=== PATIENT | female | born 1980 | race Caucasian/White ===

== ENCOUNTER 2022-06-09 10:37 | Outpatient (CLI) | payer SELFPAY ==
[~2022-06-09] VITALS: Ht 178 cm; Wt 70.8 kg
[~2022-06-09 10:37] MED LIST: HYDR-3583 PO; IBP600T1 PO
[2022-06-09] MEDS ORDERED: ONDANSETRON 4 MG/2 ML (SDV) Z0FRAN IVP PRN (11:00)
[2022-06-09] MEDS ORDERED: LACTATED RINGERS 1,000 ML IV SCH ×2 (11:00→14:15)
[2022-06-09 11:01] VITALS: BP 129/65
[2022-06-09 11:16] LABS: BASOPHILS % (AUTO) 0 % (0-10); EOSINOPHILS % (AUTO) 0 % (0-10); HEMATOCRIT 34 % (35-52); HEMOGLOBIN 11.3 g/dL (11.5-16.0); LYMPHOCYTES % (AUTO) 10 % (12-44); MEAN CORPUSCULAR HEMOGLOBIN 30 pg (25-34); MEAN CORPUSCULAR HGB CONC 33 g/dL (32-36); MEAN CORPUSCULAR VOLUME 89 fL (80-99); MEAN PLATELET VOLUME 9.4 fL (9.0-12.2); MONOCYTES # (AUTO) 0.8 10^3/uL (0.0-1.0); MONOCYTES % (AUTO) 9 % (0-12); NEUTROPHILS # (AUTO) 7.4 10^3/uL (1.8-7.8); NEUTROPHILS % (AUTO) 79 % (42-75); PLATELET COUNT 199 10^3/uL (130-400); WHITE BLOOD COUNT 9.4 10^3/uL (4.3-11.0)
[2022-06-09 11:17] LABS: BILIRUBIN,URINE NEGATIVE (NEGATIVE); CLARITY,URINE SL CLOUDY; COLOR,URINE YELLOW; GLUCOSE, URINE (UA) NEGATIVE (NEGATIVE); KETONES,URINE NEGATIVE (NEGATIVE); LEUKOCYTE ESTERASE ,URINE 1+ (NEGATIVE); NITRITE,URINE NEGATIVE (NEGATIVE); PROTEIN,URINE 1+ (NEGATIVE)
[2022-06-09 11:35] LABS: BACTERIA,URINE MODERATE /HPF; RBC,URINE 50-100 /HPF
[2022-06-09 11:42] LABS: ALBUMIN 3.1 GM/DL (3.2-4.5); BILIRUBIN,TOTAL 0.5 MG/DL (0.1-1.0); CALCIUM 8.8 MG/DL (8.5-10.1); CREATININE SERUM 0.85 MG/DL (0.60-1.30); POTASSIUM 3.1 MMOL/L (3.6-5.0); TOTAL PROTEIN 6.3 GM/DL (6.4-8.2)
[2022-06-09] MEDS ORDERED: fentaNYL INJ 100 MCG/2 ML AMP IVP PRN (12:15)
[2022-06-09 12:28] LABS: AMYLASE 101 U/L (25-125); LIPASE 26 U/L (8-78)
[2022-06-09 13:22] VITALS: BP 117/65
[2022-06-09] MEDS ORDERED: cefTRIAXone 1,000 MG in SYRINGE-IVPB 0 SYRINGE IV SCH (14:15)
[2022-06-09] MEDS ORDERED: HYDROcodone/APAP 5 MG/325 MG (LORTAB) TAB PO PRN (14:15)
--- NOTE | 2022-06-09 14:17 | History & Physical-OB ---
OB - Chief Complaint & HPI Date/Time Date of Admission: Date of Admission: 06/09/2022 Date seen by a Provider: Jun 09, 2022 Time Seen by a Provider: 13:50 Chief Complaint/History OB-Reason for Admission/Chief: Medical Complication Hx : 3 Hx Para: 2 Expected Date of Delivery: July 30, 2022 Gestational Age in Weeks: 32 Gestational Age in Days: 5 Other at 32w5d came to Labor and Delivery due to sudden onset of severe right sided pain at 7 am. This woke her up out of sleep and was sharp and stabbing, f rom rib level down to pelvis and through back, worst in right back just below ribs. She denies fever, dysuria. Has had normal to increased movement. Denies vaginal bleeding. Last bowel movement was yesterday afternoon and was normal. Vomited once this morning which she relates to pain. Republic her heart was pounding when pain was severe. She has no history of kidney stones, she does still have her gall bladder. She has had chronic epigastric pain which she relates to reflux and this has not changed. Allergies and Home Medications Allergies Coded Allergies: No Known Drug Allergies (Unverified , 06/09/22) Patient Home Medication List Home Medication List Reviewed: Yes Calcium Carbonate (Tums) 200 Mg Calcium (500 Mg) Tab.chew, 200 MG PO TID PRN for HEARTBURN, (Reported) Entered as Reported by: ZECHARIAH BRIGGS on 06/09/221420 Last Action: New Order Pnv95/Ferrous Fumarate/FA ( Vitamin Tablet) 28 Mg Iron-800 Mcg Tablet, 1 EACH PO DAILY, (Reported) Entered as Reported by: ZECHARIAH BRIGGS on 06/09/221420 Last Action: New Order OB - History Hx of Present Care: Yes Ultrasounds: Normal mid trimester US (had low lying placenta at 22 weeks, repeat US at 26 weeks with no previa) Obstetrical Complications: Other (abnormal 1 hour glucola, 1/4 elevated on 3 hour) Information Induced Hypertension: No Maternal Gestational Diabetes: No Hemorrhage: No Obstetrical History Hx : 3 Hx Para: 2 Hx # Term Pregnancies: 2 Hx # Pregnancies: 0 Number of Living Children: 2 Hx Total # of Abortions (Spona: 0 Hx Multiple Gestation: No Hx Ectopic : No Hx Stillbirth: No Hx Complication: Yes Hx Induced Hypertens: No Hx Maternal Gestational Diabet: Yes Hx Hemorrhage: No Delivery History Hx Dystocia: No Hx Forceps Assisted Delivery: No Hx Vacuum Extraction Assisted: No Hx Placenta Abnormality: Yes (partial abruption with first delivery) Hx Distress: No Hx Large For Gestational Age I: No Hx Small for Gestational Age I: No Hx Section: No Hx Vaginal Delivery Post C-Sec: No Hx Blood Disorders: No Adverse Rxn to Tranfusion: No Patient Past Medical History PMHx: Denies Surg Hx: LEEP Social History/Family History Alcohol Use: Denies Use Recreational Drug Use: No Smoking Cessation: Current every day smoker 2nd Hand Smoke Exposure: Yes Immunizations Influenza Vaccine Up-to-Date: No; Not Current Rubella: immune RPR/VDRL: Negative GBS Status: Unknown HBsAG: Negative OB - Admission Exam Physical Exam Vitals: Vital Signs 06/09/22 06/09/22 11:01 13:22 Temp 36.2 Pulse 63 Resp 18 B/P (MAP) 117/65 (82) Pulse Ox 99 O2 Delivery Room Air HEENT: NCAT Lungs: Clear Abdomen: Gravid (mild diffuse ttp, greatest in RUQ, positive Delgado's by report, but unclear if pain worse except by asking; moderate to severe right flank pain with palpation) Extremities: Normal Heart Rate: 140's Accelerations: Accelerations Present Decelerations: No Decelerations Short Term Variability: Present Veneer Jointer Returner Variability: Average (6-25) Contractions on Admission: None Labs Laboratory Tests Test 06/09/22 10:30 06/09/22 11:08 Range/Units Urine Color YELLOW Urine Clarity SL CLOUDY Urine pH 7.0 5-9 Urine Specific Sullivan 1.020 1.016-1.022 Urine Protein 1+ H NEGATIVE Urine Glucose (UA) NEGATIVE NEGATIVE Urine Ketones NEGATIVE NEGATIVE Urine Nitrite NEGATIVE NEGATIVE Urine Bilirubin NEGATIVE NEGATIVE Urine Urobilinogen 0.2 < = 1.0 MG/DL Urine Leukocyte Esterase 1+ H NEGATIVE Urine RBC (Auto) 3+ H NEGATIVE Urine RBC 50-100 H /HPF Urine WBC 2-5 /HPF Urine Squamous Epithelial Cells 5-10 /HPF Urine Crystals NONE /LPF Urine Bacteria MODERATE H /HPF Urine Casts NONE /LPF Urine Mucus SMALL H /LPF Urine Culture Indicated CULTURE PENDING White Blood Count 9.4 4.3-11.0 10^3/uL Red Blood Count 3.83 3.80-5.11 10^6/uL Hemoglobin 11.3 L 11.5-16.0 g/dL Hematocrit 34 L 35-52 % Mean Corpuscular Volume 89 80-99 fL Mean Corpuscular Hemoglobin 30 25-34 pg Mean Corpuscular Hemoglobin Concent 33 32-36 g/dL Red Cell Distribution Width 12.8 10.0-14.5 % Platelet Count 199 130-400 10^3/uL Mean Platelet Volume 9.4 9.0-12.2 fL Immature Granulocyte % (Auto) 2 % Neutrophils (%) (Auto) 79 H 42-75 % Lymphocytes (%) (Auto) 10 L 12-44 % Monocytes (%) (Auto) 9 0-12 % Eosinophils (%) (Auto) 0 0-10 % Basophils (%) (Auto) 0 0-10 % Neutrophils # (Auto) 7.4 1.8-7.8 10^3/uL Lymphocytes # (Auto) 1.0 1.0-4.0 10^3/uL Monocytes # (Auto) 0.8 0.0-1.0 10^3/uL Eosinophils # (Auto) 0.0 0.0-0.3 10^3/uL Basophils # (Auto) 0.0 0.0-0.1 10^3/uL Immature Granulocyte # (Auto) 0.2 H 0.0-0.1 10^3/uL Sodium Level 138 135-145 MMOL/L Potassium Level 3.1 L 3.6-5.0 MMOL/L Chloride Level 105 98-107 MMOL/L Carbon Dioxide Level 20 L 21-32 MMOL/L Anion Gap 13 5-14 MMOL/L Blood Urea Nitrogen 10 7-18 MG/DL Creatinine 0.85 0.60-1.30 MG/DL Estimat Glomerular Filtration Rate 89 BUN/Creatinine Ratio 12 Glucose Level 95 70-105 MG/DL Calcium Level 8.8 8.5-10.1 MG/DL Corrected Calcium 9.5 8.5-10.1 MG/DL Total Bilirubin 0.5 0.1-1.0 MG/DL Aspartate Amino Transf (AST/SGOT) 19 5-34 U/L Alanine Aminotransferase (ALT/SGPT) 16 0-55 U/L Alkaline Phosphatase 163 H 40-136 U/L Total Protein 6.3 L 6.4-8.2 GM/DL Albumin 3.1 L 3.2-4.5 GM/DL Amylase Level 101 25-125 U/L Lipase 26 8-78 U/L OB - Assessment/Plan/Diagnosis Assessment Admission Dx Right sided pain in Third trimester 32 weeks gestation Admission Status: Observation Plan Other Plan Severe right sided pain in - differential including HELLP, acute fatty liver, gall bladder disease, nephrolithiasis, intraabdominal infection, pyelonephritis, ovarian torsion, placental abruption -Initial labs- CBC, CMP, lipase/amylase all reassuring making HELLP, AFLP and infection unlikely - status reassuring making abruption less likely -UA with possible infection- will treat with ceftriaxone pending culture -Check STAT US to eval placenta, ovaries, liver and kidneys -IV bolus and now continuous LR for suspected nephrolithiasis, pain control with hydrocodone if tolerating oral, fentanyl IV if needed ZECHARIAH BRIGGS MD Jun 09, 2022 14:17
[2022-06-09] MEDS ORDERED: D5 LR IV SOLUTION 1,000 ML IV SCH (14:18)
[2022-06-09] MEDS ORDERED: PNV91TAB6 PO (14:21)
[2022-06-09] MEDS ORDERED: CALC500T7 PO (14:21)
[2022-06-09] MEDS: fentaNYL INJ 100 MCG/2 ML AMP IVP PRN ×3 (14:25→15:57)
[2022-06-09] MEDS ORDERED: cefTRIAXone 1 GM/50 ML (PRE-MIX) IV SCH (14:30)
[2022-06-09] MEDS ORDERED: FAMOTIDINE 20 MG (PEPCID) TABLET PO SCH (14:45)
[2022-06-09] MEDS ORDERED: KCL 20 MEQ TAB (K-DUR) PO NR (15:00)
[2022-06-09 15:50] VITALS: BP 139/63
--- NOTE | 2022-06-09 15:58 | Diagnostic Imaging Report ---
PROCEDURE: US Hepatic (Liver). TECHNIQUE: Multiple real-time grayscale images were obtained over the right upper quadrant in various projections. INDICATION: Right upper quadrant pain. FINDINGS: Liver measures 16 cm in length. Portal vein is patent and shows normal direction of flow. No liver mass is identified. There is a large amount of shadowing arising from the gallbladder. Features are suggestive of a stone filled gallbladder. No biliary ductal dilatation is seen. The pancreas and aorta are obscured. IVC is patent. Right kidney does show moderate hydronephrosis. There is a questionable cyst in the lower pole of the right kidney as well. No calculi are seen. There is no ascites. IMPRESSION: 1. Features suggestive of a stone filled gallbladder. 2. Moderate right-sided hydronephrosis. Dictated by: Dictated on workstation # [id number]
--- NOTE | 2022-06-09 15:59 | Diagnostic Imaging Report ---
INDICATION: Right upper quadrant pain and placental abruption. FINDINGS: There is a single live fetus in a cephalic presentation. heart rate was recorded at 142 bpm. Placenta is posterior. No previa is identified. No retroplacental fluid collection or evidence of abruption is identified. Amniotic fluid index is 17.4 cm. IMPRESSION: Unremarkable limited obstetrical ultrasound. Dictated by: Dictated on workstation # [id number]
--- NOTE | 2022-06-09 16:00 | Diagnostic Imaging Report ---
PROCEDURE: US renal bilateral. TECHNIQUE: Multiple real-time grayscale images were obtained over the kidneys in various projections, bilaterally. INDICATION: Right upper quadrant pain. FINDINGS: Right kidney measures 12.5 x 6.4 x 6.1 cm and left kidney measures 11.2 x 5.4 x 4.9 cm. There is fairly significant hydronephrosis in the right kidney. There is also questionable cyst in the lower pole right kidney. No calculus is seen. Left kidney is unremarkable. There is normal cortical thickness. IMPRESSION: Moderate right-sided hydronephrosis. Dictated by: Dictated on workstation # [id number]
[2022-06-09] MEDS ORDERED: ACHD5005 PO (17:45)
[2022-06-09] MEDS ORDERED: FAMO20TA5 PO (17:45)
[2022-06-09] MEDS ORDERED: AMOX1TAB12 PO (17:45)
[2022-06-09 18:20] VITALS: BP 139/63
[2022-06-10] MEDS ORDERED: CALC500T7 PO (10:58)
[2022-06-10] MEDS ORDERED: FAMO20TA3 PO (10:58)
[2022-06-10] MEDS ORDERED: PREN-142 PO (10:58)
--- NOTE | 2022-06-10 17:48 | Discharge Summary ---
Discharge Summary Hospital Course Hospital Course Date of Admission: Admission Diagnosis : 32 weeks gestation/third trimester Right sided pain complicating Family Physician/Provider: Date of Discharge: 06/10/22 Discharge Diagnosis: 32 weeks gestation Cholelithiasis Right sided hydronephrosis Hospital Course: 41 yo at 32w5d presented with severe right sided abdominal pain. CBC and CMP and lipase/amylase were normal, status reassuring and no contractions noted. Her uterus was soft and no-tender. STAT US showed no evidence of abruption, normal status and JABARI. She had multiple gall stones, normal appearing liver and moderate right sided hydronephrosis noted on ultrasound. She did have hematuria noted. She was given IVF and pain medication, and when she was able to tolerate oral hydrocodone, and pain was controlled, she requested d/c due to spouses' work and her kids. Throughout her stay, heart rate was reassuring with moderate varability and accelerations and she had no regular uterine activity. She was discharged with scripts for hydrocodone for pain suspected to be related to biliary colic vs nephrolithiasis and Augmentin (given one dose of ceftriaxone inpatient) for possible UTI. Labs and Pending Lab Test: Microbiology 06/09/22 Urine Culture - Final, Complete Mixed Bacterial Shila See Comments Home Meds Active Amox Tr-K Clv 875-125 mg Tab (Amoxicillin/Potassium Clav) 875 Mg-125 Mg Tablet 1 Each PO BID Hydrocodone-Acetamin 5-325 mg (Hydrocodone/Acetaminophen) 5 Mg-325 Mg Tablet 1 Tab PO Q4H PRN Famotidine 20 Mg Tablet 20 Mg PO BID Reported Vitamin Tablet (Pnv95/Ferrous Fumarate/FA) 28 Mg Iron-800 Mcg Tablet 1 Each PO DAILY Tums (Calcium Carbonate) 200 Mg Calcium (500 Mg) Tab.chew 200 Mg PO TID PRN Assessment/Pt DC Instructions Follow up next week. Discharge Diet: Liquid Diet Activity as Tolerated: Yes Discharge Physical Examination Allergies: Coded Allergies: No Known Drug Allergies (Unverified , 06/09/22) ZECHARIAH BRIGGS MD Jun 10, 2022 17:47
== END 2022-06-09 17:55 | disposition home or self-care (01) ==
LOC: WSo 10:37 → LDRP 10:37 → MERGE 10:37 → SUATTDRO 14:40 → WSo 17:55
PROVIDERS: ATTEND Family Medicine
DX: O99.891 Other specified diseases and conditions complicating pregnancy (principal); R10.9 Unspecified abdominal pain; Z3A.00 Weeks of gestation of pregnancy not specified
CPT/HCPCS: 36415; 76705; 76770; 76815; 80053; 81000; 82150; 83690; 85025; 87088

== ENCOUNTER 2022-06-10 07:46 | Observation (INO) | payer SELFPAY ==
[~2022-06-10] VITALS: Ht 178 cm; Wt 70.9 kg
[~2022-06-10 07:46] MED LIST changes: +ACHD5005 PO; +AMOX1TAB12 PO; +CALC500T7 PO; +FAMO20TA5 PO; +PNV91TAB6 PO
[2022-06-10] MEDS ORDERED: LACTATED RINGERS 1,000 ML IV SCH (08:15)
[2022-06-10 08:22] VITALS: BP 119/68
[2022-06-10 08:26] LABS: BASOPHILS % (AUTO) 0 % (0-10); EOSINOPHILS # (AUTO) 0.1 10^3/uL (0.0-0.3); EOSINOPHILS % (AUTO) 0 % (0-10); HEMATOCRIT 30 % (35-52); HEMOGLOBIN 10.2 g/dL (11.5-16.0); LYMPHOCYTES # (AUTO) 1.1 10^3/uL (1.0-4.0); LYMPHOCYTES % (AUTO) 8 % (12-44); MEAN CORPUSCULAR HEMOGLOBIN 30 pg (25-34); MEAN CORPUSCULAR HGB CONC 34 g/dL (32-36); MEAN CORPUSCULAR VOLUME 88 fL (80-99); MEAN PLATELET VOLUME 9.5 fL (9.0-12.2); MONOCYTES % (AUTO) 8 % (0-12); NEUTROPHILS # (AUTO) 10.3 10^3/uL (1.8-7.8); NEUTROPHILS % (AUTO) 82 % (42-75); PLATELET COUNT 183 10^3/uL (130-400); WHITE BLOOD COUNT 12.6 10^3/uL (4.3-11.0)
[2022-06-10 08:33] LABS: POTASSIUM 3.4 MMOL/L (3.6-5.0)
[2022-06-10 08:34] LABS: CALCIUM 8.1 MG/DL (8.5-10.1)
[2022-06-10 08:37] LABS: BILIRUBIN,TOTAL 0.5 MG/DL (0.1-1.0)
[2022-06-10] MEDS: fentaNYL INJ 100 MCG/2 ML AMP IVP PRN ×6 (08:38→19:21)
[2022-06-10 08:39] LABS: CREATININE SERUM 0.76 MG/DL (0.60-1.30)
[2022-06-10] MEDS ORDERED: cefTRIAXone 1 GM PRE-MIX 50 ML IV ONE (09:00)
[2022-06-10 09:59] VITALS: BP 118/82
--- NOTE | 2022-06-10 10:27 | History & Physical-OB ---
OB - Chief Complaint & HPI Date/Time Date of Admission: Date of Admission: 06/10/22 Date seen by a Provider: Jun 10, 2022 Time Seen by a Provider: 10:15 Chief Complaint/History OB-Reason for Admission/Chief: Medical Complication Hx : 3 Hx Para: 2 Expected Date of Delivery: July 30, 2022 Gestational Age in Weeks: 32 Gestational Age in Days: 6 History of Labs Laboratory Tests Test 06/10/22 08:18 Range/Units White Blood Count 12.6 H 4.3-11.0 10^3/uL Red Blood Count 3.43 L 3.80-5.11 10^6/uL Hemoglobin 10.2 L 11.5-16.0 g/dL Hematocrit 30 L 35-52 % Mean Corpuscular Volume 88 80-99 fL Mean Corpuscular Hemoglobin 30 25-34 pg Mean Corpuscular Hemoglobin Concent 34 32-36 g/dL Red Cell Distribution Width 13.0 10.0-14.5 % Platelet Count 183 130-400 10^3/uL Mean Platelet Volume 9.5 9.0-12.2 fL Immature Granulocyte % (Auto) 1 % Neutrophils (%) (Auto) 82 H 42-75 % Lymphocytes (%) (Auto) 8 L 12-44 % Monocytes (%) (Auto) 8 0-12 % Eosinophils (%) (Auto) 0 0-10 % Basophils (%) (Auto) 0 0-10 % Neutrophils # (Auto) 10.3 H 1.8-7.8 10^3/uL Lymphocytes # (Auto) 1.1 1.0-4.0 10^3/uL Monocytes # (Auto) 1.0 0.0-1.0 10^3/uL Eosinophils # (Auto) 0.1 0.0-0.3 10^3/uL Basophils # (Auto) 0.0 0.0-0.1 10^3/uL Immature Granulocyte # (Auto) 0.1 0.0-0.1 10^3/uL Sodium Level 135 135-145 MMOL/L Potassium Level 3.4 L 3.6-5.0 MMOL/L Chloride Level 105 98-107 MMOL/L Carbon Dioxide Level 19 L 21-32 MMOL/L Anion Gap 11 5-14 MMOL/L Blood Urea Nitrogen 9 7-18 MG/DL Creatinine 0.76 0.60-1.30 MG/DL Estimat Glomerular Filtration Rate 102 BUN/Creatinine Ratio 12 Glucose Level 93 70-105 MG/DL Calcium Level 8.1 L 8.5-10.1 MG/DL Corrected Calcium 8.9 8.5-10.1 MG/DL Total Bilirubin 0.5 0.1-1.0 MG/DL Aspartate Amino Transf (AST/SGOT) 17 5-34 U/L Alanine Aminotransferase (ALT/SGPT) 16 0-55 U/L Alkaline Phosphatase 161 H 40-136 U/L Total Protein 6.0 L 6.4-8.2 GM/DL Albumin 3.0 L 3.2-4.5 GM/DL Lipase 26 8-78 U/L Other at 32w6d was in yesterday with severe right sided pain and had work-up consistent with gall stones, pain was tolerable with oral hydrocodone and she requested discharge. She was sent with hydrocodone and Augmentin for possible UTI. After going home, she took hydrocodone at 8 pm, woke up around midnight with some pain but went back to sleep until 6 am, at which time pain was intolerable and she wasn't able to manage it with the hydrocodone, is more severe than yesterday. Denies fever, chills, vaginal bleeding or decreased movement. She doesn't think she is having contractions, but is hard to tell for sure given her persistent back pain. Pain is in right upper quadrant and right upper back at worst, but does radiate down to right side down to pelvis and along back, and she does have pain through epigastric region now as well. Vo mited this morning 3 times. Has not had a bowel movement since Saturday afternoon (around 36 hours ago). Ultrasounds from 06/09/22 showed no evidence of abruption, unremarkable Ob ultrasound with normal JABARI, renal US with moderate right sided hydroneprhosis and Liver/GB US "IMPRESSION: 1. Features suggestive of a stone filled gallbladder. 2. Moderate right-sided hydronephrosis." Labs on 06/09 had normal white blood cell count, hgb in the 11s, nml platelets and nml LFTs (alk phos mildly elevated consistent with levels), nml lipase/amylase. Allergies and Home Medications Allergies Coded Allergies: No Known Drug Allergies (Unverified , 06/27/11) Patient Home Medication List Home Medication List Reviewed: Yes Calcium Carbonate (Tums) 200 Mg Calcium (500 Mg) Tab.chew, 200 MG PO, (Reported) Entered as Reported by: ZECHARIAH BRIGGS on 06/10/221057 Last Action: Reviewed Famotidine (Acid Support Worker (FAMOTIDINE)) 20 Mg Tablet, 20 MG PO BID, (Reported) Entered as Reported by: ZECHARIAH BRIGGS on 06/10/221057 Last Action: Reviewed Hydrocodone Bit/Acetaminophen (Lortab 5 Mg) 1 Tab Tab, 1 EA PO Q 4 - 6 HR PRN PRN, (Reported) Entered as Reported by: ENRIQUE BELLA on 06/29/11 144 Last Action: Reviewed Vit No.124/Iron/FA ( Vitamin Tablet) 27 Mg Iron-800 Mcg Tablet, 1 EACH PO DAILY, (Reported) Entered as Reported by: ZECHARIAH BRIGGS on 06/10/221057 Last Action: Reviewed Discontinued Medications Ibuprofen (Motrin) 600 Mg Tab, 600 MG PO Q6H, (Reported) Entered as Reported by: ENRIQUE BELLA on 06/29/111443 Last Action: Discontinued OB - History Hx of Present Care: Yes Ultrasounds: Normal mid trimester US Information Induced Hypertension: No Maternal Gestational Diabetes: No Hemorrhage: No Obstetrical History Hx : 3 Hx Para: 2 Hx # Term Pregnancies: 2 Hx # Pregnancies: 0 Number of Living Children: 2 Hx Termination: No Hx Total # of Abortions (Spona: 0 Hx Multiple Gestation: No Hx Ectopic : No Hx Stillbirth: No Hx Complication: Yes (partial placental abruption with first delivery) Hx Induced Hypertens: No Hx Maternal Gestational Diabet: No Hx Hemorrhage: No Delivery History Hx Dystocia: No Hx Forceps Assisted Delivery: No Hx Vacuum Extraction Assisted: No Hx Placenta Abnormality: Yes (partial placental abruption with first at labor) Hx Distress: No Hx Large For Gestational Age I: No Hx Small for Gestational Age I: No Hx Section: No Hx Vaginal Delivery Post C-Sec: No Hx Blood Disorders: No Adverse Rxn to Tranfusion: No Patient Past Medical History PMHx: Denies SurgHx: LEEP of cervix Social History/Family History Alcohol Use: Denies Use Recreational Drug Use: No Smoking Cessation: Current every day smoker 2nd Hand Smoke Exposure: Yes Immunizations Influenza Vaccine Up-to-Date: No; Not Current Rubella: immune RPR/VDRL: Negative GBS Status: Unknown HBsAG: Negative OB - Admission Exam Physical Exam Vitals: Vital Signs 06/10/22 06/10/22 08:22 09:59 Temp 36.5 Pulse 78 Resp 20 B/P (MAP) 118/82 (94) Pulse Ox 96 O2 Delivery Room Air HEENT: NCAT Abdomen: Gravid (uterus nontender and soft, marked ttp RUQ, mild ttp LUQ) Extremities: Normal Cervical Dilatation: Fingertip Heart Rate: 120's Accelerations: Accelerations Present Decelerations: No Decelerations Short Term Variability: Present Nursing Home Variability: Average (6-25) Contractions on Admission: None Labs Laboratory Tests Test 06/10/22 08:18 Range/Units White Blood Count 12.6 H 4.3-11.0 10^3/uL Red Blood Count 3.43 L 3.80-5.11 10^6/uL Hemoglobin 10.2 L 11.5-16.0 g/dL Hematocrit 30 L 35-52 % Mean Corpuscular Volume 88 80-99 fL Mean Corpuscular Hemoglobin 30 25-34 pg Mean Corpuscular Hemoglobin Concent 34 32-36 g/dL Red Cell Distribution Width 13.0 10.0-14.5 % Platelet Count 183 130-400 10^3/uL Mean Platelet Volume 9.5 9.0-12.2 fL Immature Granulocyte % (Auto) 1 % Neutrophils (%) (Auto) 82 H 42-75 % Lymphocytes (%) (Auto) 8 L 12-44 % Monocytes (%) (Auto) 8 0-12 % Eosinophils (%) (Auto) 0 0-10 % Basophils (%) (Auto) 0 0-10 % Neutrophils # (Auto) 10.3 H 1.8-7.8 10^3/uL Lymphocytes # (Auto) 1.1 1.0-4.0 10^3/uL Monocytes # (Auto) 1.0 0.0-1.0 10^3/uL Eosinophils # (Auto) 0.1 0.0-0.3 10^3/uL Basophils # (Auto) 0.0 0.0-0.1 10^3/uL Immature Granulocyte # (Auto) 0.1 0.0-0.1 10^3/uL Sodium Level 135 135-145 MMOL/L Potassium Level 3.4 L 3.6-5.0 MMOL/L Chloride Level 105 98-107 MMOL/L Carbon Dioxide Level 19 L 21-32 MMOL/L Anion Gap 11 5-14 MMOL/L Blood Urea Nitrogen 9 7-18 MG/DL Creatinine 0.76 0.60-1.30 MG/DL Estimat Glomerular Filtration Rate 102 BUN/Creatinine Ratio 12 Glucose Level 93 70-105 MG/DL Calcium Level 8.1 L 8.5-10.1 MG/DL Corrected Calcium 8.9 8.5-10.1 MG/DL Total Bilirubin 0.5 0.1-1.0 MG/DL Aspartate Amino Transf (AST/SGOT) 17 5-34 U/L Alanine Aminotransferase (ALT/SGPT) 16 0-55 U/L Alkaline Phosphatase 161 H 40-136 U/L Total Protein 6.0 L 6.4-8.2 GM/DL Albumin 3.0 L 3.2-4.5 GM/DL Lipase 26 8-78 U/L OB - Assessment/Plan/Diagnosis Assessment Admission Dx intrauterine at 32 weeks gestation Suspected cholelithiasis complicating Possible nephrolithiasis complicating Admission Status: Observation Plan Other Plan Suspected cholecystitis: at this time, given persistence of pain and increasing WBC, suspect acute cholecystitis rather than biliary colic alone. Did receive one dose of ceftriaxone yesterday, restart today and add metronidazole. Consult Surgery. Pain not controlled with fentanyl, will try morphine. Uterine irritability: monitor closely for labor signs due to above. status reassuring. Possible UTI: urine yesterday with signs of possible infection, treated with ceftriaxone. Possible nephrolithiasis: right sided hydronephrosis without visualized stone, could be related. IVF at 150 mls/hr. Pain control as above. 32 weeks gestation: continuous monitor, safe medications ZECHARIAH BRIGGS MD Jun 10, 2022 10:27
[2022-06-10] MEDS ORDERED: morphine INJ 10 MG/ML 1ML (SYR OR VIAL) IVP PRN (10:45)
[2022-06-10] MEDS ORDERED: morphine INJ 4 MG/ML 1 ML (VIAL/SYRINGE) ONE (10:56)
[2022-06-10] MEDS ORDERED: PREN-142 PO (10:58)
[2022-06-10] MEDS ORDERED: CALC500T7 PO (10:58)
[2022-06-10] MEDS ORDERED: FAMO20TA3 PO (10:58)
[2022-06-10] MEDS ORDERED: ONDANSETRON 4 MG/2 ML (SDV) Z0FRAN IVP PRN (11:15)
[2022-06-10] MEDS: metroNIDAZOLE 500MG/100ML IVPB 100 ML IV SCH ×2 (11:19→19:22)
[2022-06-10] MEDS: morphine INJ 4 MG/ML 1 ML (VIAL/SYRINGE) IV PRN ×2 (11:19→11:35)
[2022-06-10] MEDS ORDERED: morphine INJ 10 MG/ML 1ML (SYR OR VIAL) IVP STA (11:23)
[2022-06-10 11:35] VITALS: BP 130/66
[2022-06-10] MEDS ORDERED: fentaNYL INJ 100 MCG/2 ML AMP ONE ×2 (12:56→14:06)
--- NOTE | 2022-06-10 12:56 | Diagnostic Imaging Report ---
ABDOMEN/KUB 1VIEW INDICATION: Vomiting COMPARISON: None available. TECHNIQUE: AP view the abdomen FINDINGS: Gravid uterus with skeleton noted. The fetus is in cephalic presentation. spine is to maternal left. Nonobstructive bowel gas pattern. No radiographically apparent urinary tract calculi. IMPRESSION: 1. Nonobstructive bowel gas pattern. 2. Gravid uterus with fetus in cephalic presentation. Dictated by: Dictated on workstation # [id number]
[2022-06-10] MEDS ORDERED: fentaNYL INJ 100 MCG/2 ML AMP IVP PRN (14:15)
[2022-06-10] MEDS ORDERED: NICOTINE 14 MG (NICODERM) PATCH TD NR (16:00)
--- NOTE | 2022-06-10 16:03 | Consultation - Surgery ---
DINESHDONNIE 06/10/22 1603: History of Present Illness History of Present Illness Patient Consulted On(codi/time) 06/10/22 15:55 Date Seen by Provider: Jun 10, 2022 Time Seen by Provider: 15:55 History of Present Illness 41yo F at 32 weeks admitted for RUQ abd and possible acute cholecystitis. Pt states that she experienced sudden onset of 10/10 sharp, constant, RUQ pain with radiation to R upper back Saturday morning. Pt also experienced associated nausea, vomiting (multiple episodes of bile and water), and chills.. Pt states that she took 2 tylenol tabs but had no relief, prompting her to go to [facility]. US remarkbale for cholelithiasis and moderate hydronephrosis of the R kidney. Pt was given hydrocodone and sent home. Pt states that pain was initially controlled with hydrocodone when taken Q4H, but missed 4am dose and woke up at 6am this morning with "intolerable pain" that was worse than before. Pt also notes increased nausea and vomiting, stating that emesis was now dark green and "sludgy". Pt was admitted to labor and delivery, carlos but not in active labor. In room, pt is in moderate distress secondary to pain. Pt states that pain is somewhat relieved by pain medication but is still an 8/10 and worse with movement. Pt also notes that movement of her right leg causes exacerbation of RUQ pain and states that she cannot lift her leg without assistance. Tender to palpation of RUQ and R upper back, slightly worse on back. Pt is unable to tolerate liquids at this time, having emesis after every sip of water. Pt was found to have RBCs on UA and reports kiki blood with wiping as well as increased urgency that started yesterday. WBC increased from yesterday at 12.6 from 9.7, but still within normal range for a third trimester . LFTs normal (elevated ALP within range for ). Bilirubin normal. Pt afebrile. Pt denies every experiencing similar pain in the past and states that abd pain not similar to labor pains. Does not feel like pains are contractions. Pt denies fevers at home, CP, SOB, diarrhea, SOB, and dysuria. Liver US: IMPRESSION: 1. Features suggestive of a stone filled gallbladder. 2. Moderate right-sided hydronephrosis. Renal US: IMPRESSION: Moderate right-sided hydronephrosis. Allergies and Home Medications Allergies Coded Allergies: No Known Drug Allergies (Unverified , 06/27/11) Patient Home Medication List Home Medication List Reviewed: Yes Calcium Carbonate (Tums) 200 Mg Calcium (500 Mg) Tab.chew, 200 MG PO, (Reported) Entered as Reported by: ZECHARIAH BRIGGS on 06/10/221057 Last Action: Reviewed Famotidine (Acid Medication Nurse (FAMOTIDINE)) 20 Mg Tablet, 20 MG PO BID, (Reported) Entered as Reported by: ZECHARIAH BRIGGS on 06/10/221057 Last Action: Reviewed Hydrocodone Bit/Acetaminophen (Lortab 5 Mg) 1 Tab Tab, 1 EA PO Q 4 - 6 HR PRN PRN, (Reported) Entered as Reported by: ENRIQUE BELLA on 06/29/111443 Last Action: Reviewed Vit No.124/Iron/FA ( Vitamin Tablet) 27 Mg Iron-800 Mcg Tablet, 1 EACH PO DAILY, (Reported) Entered as Reported by: ZECHARIAH BRIGGS on 06/10/221057 Last Action: Reviewed Discontinued Medications Ibuprofen (Motrin) 600 Mg Tab, 600 MG PO Q6H, (Reported) Entered as Reported by: ENRIQUE BELLA on 06/29/111443 Last Action: Discontinued Past Dxmossj-Andzaw-Itqqcp Hx Patient Social History Smoking Status: Current Everyday Smoker Type Used: Cigarettes 2nd Hand Smoke Exposure: Yes Alcohol Use?: No Immunizations Up To Date Date of Influenza Vaccine: Dec 21, 2010 Surgeries History of Surgeries: No Respiratory History of Respiratory Disorde: No Cardiovascular History of Cardiac Disorders: No Neurological History of Neurological Disord: No Reproductive System : Yes Hx : 3 Hx Para: 2 Hx Total # of Abortions (Spona: 0 Hx Reproductive Disorders: No Female Reproductive Disorders: Denies (h/o placental abruption in first ) Gastrointestinal History of Gastrointestinal Di: No Musculoskeletal History of Musculoskeletal Dis: No Endocrine History of Endocrine Disorders: Yes (Gestational diabetes in second , not in current ) HEENT History of HEENT Disorders: No Cancer History of Cancer: No Psychosocial History of Psychiatric Problem: No Integumentary History of Skin or Integumenta: No Blood Transfusions Adverse Reaction to a Blood Tr: No Family Medical History Significant Family History: Heart Disease (mother, grandmother), COPD (mother and father) Review of Systems-General Constitutional: chills; No fever EENTM: No blurred vision, No double vision Respiratory: No cough, No dyspnea on exertion Cardiovascular: No chest pain, No palpitations Gastrointestinal: abdominal pain (RUQ pain with radiation to right upper back), nausea, vomiting Genitourinary: No dysuria; hematuria Musculoskeletal: back pain (radiation from abd pain, Right upper back) Skin: No change in color, No change in hair/nails Psychiatric/Neurological: Denies Anxiety, Denies Depressed All Other Systems Reviewed Negative Unless Noted: Yes (Negative excepted noted.) Physical Exam-General Problems Physical Exam Vital Signs Vital Signs - First Documented 06/10/22 08:22 Temp 36.5 Pulse 75 Resp 20 B/P (MAP) 119/68 Pulse Ox 96 O2 Delivery Room Air Capillary Refill : Less Than 3 Seconds General Appearance: moderate distress (secondary to pain, writhing in bed), other (gravid abd) HEENT: PERRL/EOMI Neck: non-tender, supple Respiratory: lungs clear, normal breath sounds, no respiratory distress Cardiovascular: no gallop, no murmur, tachycardia Peripheral Pulses: 2+ Dorsalis Pedis (R), 2+ Left Dors-Pedis (L) Gastrointestinal: tenderness (RUQ), other (gravid abd) Back: other (Right upper back tenderness ) Extremities: no pedal edema, no calf tenderness Neurologic/Psychiatric: alert, normal mood/affect, oriented x 3 Skin: normal color, warm/dry Lymphatic: no adenopathy Data Review Labs Laboratory Tests 06/10/22 08:18: White Blood Count 12.6H, Red Blood Count 3.43L, Hemoglobin 10.2L, Hematocrit 30L , Mean Corpuscular Volume 88, Mean Corpuscular Hemoglobin 30, Mean Corpuscular Hemoglobin Concent 34, Red Cell Distribution Width 13.0, Platelet Count 183, Mean Platelet Volume 9.5, Immature Granulocyte % (Auto) 1, Neutrophils (%) (Auto) 82H, Lymphocytes (%) (Auto) 8L, Monocytes (%) (Auto) 8, Eosinophils (%) (Auto) 0, Basophils (%) (Auto) 0, Neutrophils # (Auto) 10.3H, Lymphocytes # (Auto) 1.1, Monocytes # (Auto) 1.0, Eosinophils # (Auto) 0.1, Basophils # (Auto) 0.0, Immature Granulocyte # (Auto) 0.1, Sodium Level 135, Potassium Level 3.4L, Chloride Level 105, Carbon Dioxide Level 19L, Anion Gap 11, Blood Urea Nitrogen 9, Creatinine 0.76, Estimat Glomerular Filtration Rate 102, BUN/Creatinine Ratio 12, Glucose Level 93, Calcium Level 8.1L, Corrected Calcium 8.9, Total Bilirubin 0.5, Aspartate Amino Transf (AST/SGOT) 17, Alanine Aminotransferase (ALT/SGPT) 16, Alkaline Phosphatase 161H, Total Protein 6.0L, Albumin 3.0L, Lipase 26 Radiology Date of Exam:06/09/22 US RENAL BILATERAL [id number] PROCEDURE: US renal bilateral. TECHNIQUE: Multiple real-time grayscale images were obtained over the kidneys in various projections, bilaterally. INDICATION: Right upper quadrant pain. FINDINGS: Right kidney measures 12.5 x 6.4 x 6.1 cm and left kidney measures 11.2 x 5.4 x 4.9 cm. There is fairly significant hydronephrosis in the right kidney. There is also questionable cyst in the lower pole right kidney. No calculus is seen. Left kidney is unremarkable. There is normal cortical thickness. IMPRESSION: Moderate right-sided hydronephrosis. Dictated by: Dictated on workstation # [id number] Dict: 06/09/22 1556 Trans: 06/09/22 1601 [facility] [id number] Interpreted by: SORAIDA GALVEZ MD Electronically signed by: SORAIDA GALVEZ MD 06/09/22 1601 Date of Exam:06/09/22 US HEPATIC (LIVER)[id number] PROCEDURE: US Hepatic (Liver). TECHNIQUE: Multiple real-time grayscale images were obtained over the right upper quadrant in various projections. INDICATION: Right upper quadrant pain. FINDINGS: Liver measures 16 cm in length. Portal vein is patent and shows normal direction of flow. No liver mass is identified. There is a large amount of shadowing arising from the gallbladder. Features are suggestive of a stone filled gallbladder. No biliary ductal dilatation is seen. The pancreas and aorta are obscured. IVC is patent. Right kidney does show moderate hydronephrosis. There is a questionable cyst in the lower pole of the right kidney as well. No calculi are seen. There is no ascites. IMPRESSION: 1. Features suggestive of a stone filled gallbladder. 2. Moderate right-sided hydronephrosis. Dictated by: Dictated on workstation # [id number] Dict: 06/09/22 1553 Trans: 06/09/22 1601 [facility] [id number] Interpreted by: SORAIDA GALVEZ MD Electronically signed by: SORAIDA GALVEZ MD 06/09/22 1601 Date of Exam:06/09/22 US LIMITED [id number] INDICATION: Right upper quadrant pain and placental abruption. FINDINGS: There is a single live fetus in a cephalic presentation. heart rate was recorded at 142 bpm. Placenta is posterior. No previa is identified. No retroplacental fluid collection or evidence of abruption is identified. Amniotic fluid index is 17.4 cm. IMPRESSION: Unremarkable limited obstetrical ultrasound. Dictated by: Dictated on workstation # [id number] Dict: 06/09/22 1555 Trans: 06/09/22 1601 [facility] [id number] Interpreted by: SORAIDA GALVEZ MD Electronically signed by: SORAIDA GALVEZ MD 06/09/22 1601 Date of Exam:06/10/22 ABDOMEN/KUB 1VIEW ABDOMEN/KUB 1VIEW INDICATION: Vomiting COMPARISON: None available. TECHNIQUE: AP view the abdomen FINDINGS: Gravid uterus with skeleton noted. The fetus is in cephalic presentation. spine is to maternal left. Nonobstructive bowel gas pattern. No radiographically apparent urinary tract calculi. IMPRESSION: 1. Nonobstructive bowel gas pattern. 2. Gravid uterus with fetus in cephalic presentation. Dictated by: Dictated on workstation # [id number] Dict: 06/10/22 1253 Trans: 06/10/22 1408 [facility] [id number] Interpreted by: EMI ESPINOZA MD Electronically signed by: EMI ESPINOZA MD 06/10/22 1408 Assessment/Plan Assessment/Plan Assessment/Plan Cholelithiasis Moderate R hydronephrosis RUQ abd pain w/rad to R upper back Nausea and vomiting Hematuria 32 weeks IVF pain control anti-emetics prn IV Flagyl Pt in moderate distress secondary to pain on exam, probably multifactorial but symptoms concerning for both nephrolithiasis and cholecystitis, will repeat abd US tomorrow Clear liquids, NPO after midnight DWIGHT LEVI DO 06/10/222038: History of Present Illness History of Present Illness History of Present Illness 34 year old female 32 weeks , began having pain in right upper quadrant and back that was sharp stabbing pain that was constant. Never had pain like this before. Movement makes worse. She was evaluated yesterday labs essentially normal and u/s was done demonstrating gallbladder full of gallstones no other features of choleycystitis, hydronephrosis right side. Wanted to go home last night so she was discharged. She returned with continued pain. Worse pain is in the back on right side. She is having nausea and emesis. She reports blood in her urine. Her wbc increased. She is having some contractions. Allergies and Home Medications Allergies Coded Allergies: No Known Drug Allergies (Unverified , 06/27/11) Patient Home Medication List Home Medication List Reviewed: Yes Calcium Carbonate (Tums) 200 Mg Calcium (500 Mg) Tab.chew, 200 MG PO, (Reported) Entered as Reported by: ZECHARIAH BRIGGS on 06/10/22 105 Last Action: Reviewed Famotidine (Acid Medication Nurse (FAMOTIDINE)) 20 Mg Tablet, 20 MG PO BID, (Reported) Entered as Reported by: ZECHARIAH BRIGGS on 06/10/221057 Last Action: Reviewed Hydrocodone Bit/Acetaminophen (Lortab 5 Mg) 1 Tab Tab, 1 EA PO Q 4 - 6 HR PRN PRN, (Reported) Entered as Reported by: ENRIQUE BELLA on 06/29/11 144 Last Action: Reviewed Vit No.124/Iron/FA ( Vitamin Tablet) 27 Mg Iron-800 Mcg Tablet, 1 EACH PO DAILY, (Reported) Entered as Reported by: ZECHARIAH BRIGGS on 06/10/22 105 Last Action: Reviewed Discontinued Medications Ibuprofen (Motrin) 600 Mg Tab, 600 MG PO Q6H, (Reported) Entered as Reported by: ENRIQUE BELLA on 06/29/111443 Last Action: Discontinued Past Pqikxvm-Ibgxts-Ljssqj Hx Patient Social History Smoking Status: Current Everyday Smoker Alcohol Use?: No Surgeries History of Surgeries: No Respiratory History of Respiratory Disorde: No Cardiovascular History of Cardiac Disorders: No Neurological History of Neurological Disord: No Gastrointestinal History of Gastrointestinal Di: No Musculoskeletal History of Musculoskeletal Dis: No Endocrine History of Endocrine Disorders: No (Gestational diabetes in second , not in current ) HEENT History of HEENT Disorders: No Cancer History of Cancer: No Psychosocial History of Psychiatric Problem: No Integumentary History of Skin or Integumenta: No Reviewed Nursing Assessment Reviewed/Agree w Nursing PMH: Yes Family Medical History Significant Family History: Heart Disease (mother, grandmother), COPD (mother and father) Review of Systems-General Constitutional: chills; No fever EENTM: No blurred vision, No double vision Respiratory: No cough, No dyspnea on exertion Cardiovascular: No chest pain, No palpitations Gastrointestinal: No abdominal pain (RUQ); nausea, vomiting Genitourinary: No dysuria; hematuria Musculoskeletal: back pain ( Right mid back) Skin: No change in color, No change in hair/nails Psychiatric/Neurological: Denies Anxiety, Denies Depressed All Other Systems Reviewed Negative Unless Noted: Yes (Negative excepted noted.) Physical Exam-General Problems Physical Exam General Appearance: moderate distress (secondary to pain, writhing in bed), other (gravid abd, can't get comfortable, moving around) HEENT: PERRL/EOMI, normal ENT inspection Neck: non-tender, supple Respiratory: chest non-tender, normal breath sounds, no respiratory distress Cardiovascular: no JVD, tachycardia Gastrointestinal: soft, tenderness (Right side of abdomen), other (gravid abd) Rectal: deferred Back: other (Right mid back tenderness ) Extremities: no pedal edema, no calf tenderness Neurologic/Psychiatric: alert, normal mood/affect, oriented x 3 Skin: normal color, warm/dry Lymphatic: no adenopathy Assessment/Plan Assessment/Plan Assessment/Plan Cholelithiasis Moderate R hydronephrosis RUQ abd pain Righ mid back pain Nausea and vomiting Hematuria 32 weeks IVF pain control anti-emetics prn antibiotics Pt in moderate distress secondary to pain on exam, probably multifactorial but symptoms concerning for possible both uteral stone (causing hematuria and hyd ronephrosis) and cholecystitis had gallstones but no other features of cholecystitis by u/s. Discussed with Dr. Galvez., will repeat abd US tomorrow to see if any change by u/s clarifying diagnosis. Clear liquids, NPO after midnight Also Discussed with Dr. Briggs- Patient having more contractions, She is going to contact center with NICU for possible transfer. Supervisory-Addendum Brief Verification & Attestation Participated in pt care: history, MDM, physical Personally performed: exam, history, MDM, supervision of care Care discussed with: Medical Student Procedures: n/a Results interpretation: Verified all documentation Verification and Attestation of Medical Student E/M Service A medical student performed and documented this service in my presence. I reviewed and verified all information documented by the medical student and made modifications to such information, when appropriate. I personally performed the physical exam and medical decision making. Dwight Levi, Jun 10, 2022,20:49 DONNIE MONTIEL Jun 10, 2022 16:03 DWIGHT LEVI DO Jun 10, 2022 20:39
[2022-06-10 16:52] VITALS: BP 128/69
--- NOTE | 2022-06-10 17:39 | Discharge Summary ---
Discharge Summary Hospital Course Hospital Course Date of Admission: Jun 10, 2022 at 10:51 Admission Diagnosis : Right sided pain complicating 32 weeks gestation Cholelithiasis Hydronephrosis Family Physician/Provider: Date of Discharge: 06/10/22 Discharge Diagnosis: intrauterine at 32w6d, with regular contractions without cervical change Right sided pain Cholelithiasis Hydronephrosis Hospital Course: 41 yo at 32w6d at the hospital for second time in two days, yesterday had normal CBC and CMP with mild hypokalemia, no elevation in AST/ALT/bilirubin. Alk phos mild elevation as expected in . status was reassuring and no contractions were noted over several hours. She requested discharge yesterday after she tolerated oral hydrocodone and pain was controlled. She was given a dose of ceftriaxone due to possible UTI. Today she came back in due to worse pain after missing one dose of hydrocodone. She remained afebrile, and her repeat labs showed slightly increase in WBC to 12 and decrease in Hgb to 10.8, remainder of labs still reassuring. status again reassuring, but pain difficult to control in spite of multiple parenteral opiate doses and continued to vomit in spite of ondansetron use. Ceftriaxone and flagyl given for possible acute cholecystitis although no clear gall bladder wall thickening or pericholecystic fluid given her increased WBC and persistent pain. She had worsening pain and vomited apparent bile and hadn't had BM in 48 hours, so KUB done and no free air noted. Surgery was consulted, no acute intervention recommended. In the afternoon she began to contract regularly, so Ob at [facility] in [place] contacted and accepted patient in [facility] due to possibility of labor and availability of NICU. Labs and Pending Lab Test: Laboratory Tests 06/10/22 08:18: White Blood Count 12.6H, Red Blood Count 3.43L, Hemoglobin 10.2L, Hematocrit 30L , Mean Corpuscular Volume 88, Mean Corpuscular Hemoglobin 30, Mean Corpuscular Hemoglobin Concent 34, Red Cell Distribution Width 13.0, Platelet Count 183, Mean Platelet Volume 9.5, Immature Granulocyte % (Auto) 1, Neutrophils (%) (Auto) 82H, Lymphocytes (%) (Auto) 8L, Monocytes (%) (Auto) 8, Eosinophils (%) (Auto) 0, Basophils (%) (Auto) 0, Neutrophils # (Auto) 10.3H, Lymphocytes # (Auto) 1.1, Monocytes # (Auto) 1.0, Eosinophils # (Auto) 0.1, Basophils # (Auto) 0.0, Immature Granulocyte # (Auto) 0.1, Sodium Level 135, Potassium Level 3.4L, Chloride Level 105, Carbon Dioxide Level 19L, Anion Gap 11, Blood Urea Nitrogen 9, Creatinine 0.76, Estimat Glomerular Filtration Rate 102, BUN/Creatinine Ratio 12, Glucose Level 93, Calcium Level 8.1L, Corrected Calcium 8.9, Total Bilirubin 0.5, Aspartate Amino Transf (AST/SGOT) 17, Alanine Aminotransferase (ALT/SGPT) 16, Alkaline Phosphatase 161H, Total Protein 6.0L, Albumin 3.0L, Lipase 26 Home Meds Active Reported Tums (Calcium Carbonate) 200 Mg Calcium (500 Mg) Tab.chew 200 Mg PO Vitamin Tablet ( Vit No.124/Iron/FA) 27 Mg Iron-800 Mcg Tablet 1 Each PO DAILY Acid Control System Manager (FAMOTIDINE) (Famotidine) 20 Mg Tablet 20 Mg PO BID Lortab 5 Mg (Acetaminophen/Hydrocodone Bitart) 1 Tab Tab 1 Ea PO Q 4 - 6 HR PRN PRN Assessment/Pt DC Instructions Follow up as recommended after d/c from [facility] Discharge Physical Examination Allergies: Coded Allergies: No Known Drug Allergies (Unverified , 06/27/11) General Appearance: Other (See H and P for physical exam today) ZECHARIAH BRIGGS MD Jun 10, 2022 17:37
[2022-06-10] MEDS ORDERED: BETAMETHASONE ACE/NA PHOS 6 MG/ML (CELESTONE SOLUSPAN) ONE (18:10)
[2022-06-10] MEDS ORDERED: TERBUTALINE INJ 1 MG/ML (BRETHINE) AMP ONE (18:10)
[2022-06-10] MEDS ORDERED: TERBUTALINE INJ 1 MG/ML (BRETHINE) AMP SC ONE (18:15)
[2022-06-10 18:39] VITALS: BP 121/64
[2022-06-10 18:47] LABS: BASOPHILS % (AUTO) 0 % (0-10); EOSINOPHILS % (AUTO) 0 % (0-10); HEMATOCRIT 31 % (35-52); HEMOGLOBIN 10.3 g/dL (11.5-16.0); LYMPHOCYTES # (AUTO) 1.2 10^3/uL (1.0-4.0); LYMPHOCYTES % (AUTO) 8 % (12-44); MEAN CORPUSCULAR HEMOGLOBIN 30 pg (25-34); MEAN CORPUSCULAR HGB CONC 33 g/dL (32-36); MEAN CORPUSCULAR VOLUME 89 fL (80-99); MEAN PLATELET VOLUME 9.5 fL (9.0-12.2); MONOCYTES # (AUTO) 1.5 10^3/uL (0.0-1.0); MONOCYTES % (AUTO) 9 % (0-12); NEUTROPHILS # (AUTO) 13.1 10^3/uL (1.8-7.8); NEUTROPHILS % (AUTO) 82 % (42-75); PLATELET COUNT 165 10^3/uL (130-400); WHITE BLOOD COUNT 15.9 10^3/uL (4.3-11.0)
[2022-06-10 19:00] LABS: POTASSIUM 2.8 MMOL/L (3.6-5.0)
[2022-06-10 19:03] LABS: TOTAL PROTEIN 6.2 GM/DL (6.4-8.2)
[2022-06-10 19:04] LABS: BILIRUBIN,TOTAL 1.2 MG/DL (0.1-1.0)
[2022-06-10 19:06] LABS: BAND NEUTROPHILS 3 %; BASOPHILS % (MANUAL) 0 %; CREATININE SERUM 0.88 MG/DL (0.60-1.30); EOSINOPHILS % (MANUAL) 0 %; LYMPHOCYTES % (MANUAL) 7 %; MONOCYTES % (MANUAL) 7 %; NEUTROPHILS % (MANUAL) 83 %; RBC MORPH NORMAL
[2022-06-10 19:50] VITALS: BP 115/56
[2022-06-11] MEDS ORDERED: BETAMETHASONE ACE/NA PHOS 6 MG/ML (CELESTONE SOLUSPAN) IM SCH (09:00)
[2022-06-11] MEDS ORDERED: NICOTINE PATCH REMOVAL TP SCH (15:59)
== END 2022-06-10 20:30 | disposition other institution (70) ==
LOC: WSo 07:46 → LDRP 07:47 → WSo 10:51 → LDRP 10:51
PROVIDERS: ADMIT Family Medicine; ATTEND Family Medicine
DX: O47.1 False labor at or after 37 completed weeks of gestation (principal); O99.613 Diseases of the digestive system complicating pregnancy, third trimester; K80.20 Calculus of gallbladder without cholecystitis without obstruction; O99.891 Other specified diseases and conditions complicating pregnancy; Z3A.32 32 weeks gestation of pregnancy; N13.30 Unspecified hydronephrosis
CPT/HCPCS: 74018; 80053; 83690; 85007; 85025; 85027; 86141; 96360; 96361; G0378; G0379; G0463; 36415; 99213

== ENCOUNTER 2022-07-13 06:57 | Inpatient (IN) | payer MEDICAID ==
[~2022-07-13] VITALS: Ht 177.8 cm; Wt 68.2 kg
[2022-07-13] VITALS (49 sets, daily range): BP systolic 108–169; BP diastolic 55–90
[~2022-07-13 06:57] MED LIST changes: +FAMO20TA3 PO; +PREN-142 PO
[2022-07-13] MEDS ORDERED: CEPH500T PO (07:05)
[2022-07-13] MEDS ORDERED: OXYTOCIN PRE-MIX DRIP 500 ML IV SCH ×2 (07:15→15:00)
[2022-07-13] MEDS ORDERED: D5 LR IV SOLUTION 1,000 ML IV SCH (07:15)
[2022-07-13] MEDS ORDERED: MINERAL OIL 30 ML UDC TOP PRN (07:15)
[2022-07-13 07:36] LABS: BASOPHILS % (AUTO) 1 % (0-10); EOSINOPHILS # (AUTO) 0.1 10^3/uL (0.0-0.3); EOSINOPHILS % (AUTO) 1 % (0-10); HEMATOCRIT 37 % (35-52); HEMOGLOBIN 12.4 g/dL (11.5-16.0); LYMPHOCYTES # (AUTO) 1.6 10^3/uL (1.0-4.0); LYMPHOCYTES % (AUTO) 19 % (12-44); MEAN CORPUSCULAR HEMOGLOBIN 30 pg (25-34); MEAN CORPUSCULAR HGB CONC 34 g/dL (32-36); MEAN CORPUSCULAR VOLUME 89 fL (80-99); MEAN PLATELET VOLUME 10.2 fL (9.0-12.2); MONOCYTES # (AUTO) 0.6 10^3/uL (0.0-1.0); MONOCYTES % (AUTO) 7 % (0-12); NEUTROPHILS # (AUTO) 5.6 10^3/uL (1.8-7.8); NEUTROPHILS % (AUTO) 69 % (42-75); PLATELET COUNT 203 10^3/uL (130-400); WHITE BLOOD COUNT 8.2 10^3/uL (4.3-11.0)
--- NOTE | 2022-07-13 07:57 | History & Physical-OB ---
OB - Chief Complaint & HPI Date/Time Date of Admission: Date of Admission: Jul 13, 2022 at 06:57 Date seen by a Provider: Jul 13, 2022 Time Seen by a Provider: 08:45 Chief Complaint/History OB-Reason for Admission/Chief: Obstetrical Complication Hx : 3 Hx Para: 2 Expected Date of Delivery: July 30, 2022 Gestational Age in Weeks: 37 Gestational Age in Days: 4 Other reason for admission: 41 yo with complicated by pyelonephritis and nephrolithiasis requiring stenting, suspected gall bladder disease based on symptoms and US concerning, had contractions at that time with concern for labor in early third trimester due to cervical change and contractions and was transferred to [facility], had stenting and was able to be discharged. Presented with severe diffuse itching with no rash at routine Ob follow up 07/12. Serum bile acids pending. Admission Nurse Assessment Rev: Yes History of Labs A+, antibody neg, RI. HIV/HepB/HepC/RPR NR. GC/chlamydia neg. 1 hour glucola elevated, 1/4 elevated on 3 hour. GBS neg. Allergies and Home Medications Allergies Coded Allergies: No Known Drug Allergies (Unverified , 06/27/11) Patient Home Medication List Home Medication List Reviewed: Yes Cephalexin (Cephalexin) 500 Mg Tablet, 500 MG PO DAILY, (Reported) Entered as Reported by: LEWIS OLIVIER on 07/13/22 0705 Last Action: New Order Famotidine (Famotidine) 20 Mg Tablet, 20 MG PO BID Prescribed by: ZECHARIAH BRIGGS on 06/09/221744 Last Action: Reviewed Pnv95/Ferrous Fumarate/FA ( Vitamin Tablet) 28 Mg Iron-800 Mcg Tablet, 1 EACH PO DAILY, (Reported) Entered as Reported by: ZECHARIAH BRIGGS on 06/09/22 142 Last Action: Reviewed Discontinued Medications Amoxicillin/Potassium Clav (Amox Tr-K Clv 875-125 mg Tab) 875 Mg-125 Mg Tablet, 1 EACH PO BID Discontinued Reason: No Longer Taking Prescribed by: ZECHARIAH BRIGGS on 06/09/221744 Last Action: Discontinued Calcium Carbonate (Tums) 200 Mg Calcium (500 Mg) Tab.chew, 200 MG PO TID PRN for HEARTBURN, (Reported) Discontinued Reason: No Longer Taking Entered as Reported by: ZECHARIAH BRIGGS on 06/09/22 1421 Last Action: Discontinued Calcium Carbonate (Tums) 200 Mg Calcium (500 Mg) Tab.chew, 200 MG PO, (Reported) Discontinued Reason: No Longer Taking Entered as Reported by: ZECHARIAH BRIGGS on 06/10/22 105 Last Action: Discontinued Famotidine (Acid Emr Analyst (FAMOTIDINE)) 20 Mg Tablet, 20 MG PO BID, (Reported) Discontinued Reason: No Longer Taking Entered as Reported by: ZECHARIAH BRIGGS on 06/10/22 105 Last Action: Discontinued Hydrocodone Bit/Acetaminophen (Lortab 5 Mg) 1 Tab Tab, 1 EA PO Q 4 - 6 HR PRN PRN, (Reported) Discontinued Reason: No Longer Taking Entered as Reported by: ENRIQUE BELLA on 06/29/11 1444 Last Action: Discontinued Hydrocodone/Acetaminophen (Hydrocodone-Acetamin 5-325 mg) 5 Mg-325 Mg Tablet, 1 TAB PO Q4H PRN for PAIN-MODERATE (5-7) Discontinued Reason: No Longer Taking Prescribed by: ZECHARIAH BRIGGS on 06/09/22 1747 Last Action: Discontinued Vit No.124/Iron/FA ( Vitamin Tablet) 27 Mg Iron-800 Mcg Tablet, 1 EACH PO DAILY, (Reported) Discontinued Reason: No Longer Taking Entered as Reported by: ZECHARIAH BRIGGS on 06/10/22 105 Last Action: Discontinued OB - History Hx of Present Ultrasounds: Abnormal US findings (Initial anatomy US with low lying placenta, resolved on repeat with posterior placenta 4 cm or more from os) Obstetrical Complications: Other (suspected intrahepatic cholestasis) Medical Complications: Gastrointestinal Obstetrical History Hx Termination: No Hx Multiple Gestation: No Hx Stillbirth: No Hx Complication: Yes (partial placental abruption with first delivery) Hx Induced Hypertens: No Hx Maternal Gestational Diabet: Yes Delivery History Hx Dystocia: No Hx Large For Gestational Age I: No Hx Small for Gestational Age I: No Hx Section: No Hx Vaginal Delivery Post C-Sec: No Hx Blood Disorders: No Adverse Rxn to Tranfusion: No Patient Past Medical History PMHx: Denies SurgHx: LEEP of cervix Social History/Family History 2nd Hand Smoke Exposure: Yes Immunizations Influenza Vaccine Up-to-Date: No; Not Current OB - Admission Exam Physical Exam Vitals: Vital Signs 07/13/22 07:23 Temp 36.8 Pulse 54 Resp 20 Pulse Ox 99 O2 Delivery Room Air Abdomen: Gravid Extremities: Normal Cervical Dilatation: 4cm Effacement: Other (80) Station: -2 Amniotic Fluid: Clear Heart Rate: 120's Accelerations: Accelerations Present Short Term Variability: Present Fpc Variability: Average (6-25) Aiken Scoring Tool (Modified) Dilation (cm): 3-4cm (2) Effacement (%): 80-100% (3) Descent/Station: -2 (1) Cervix Consistency: Soft (2) Cervix Position: Anterior (2) Add 1 point for: Each previous vaginal delivery (1) (2) Aiken Score: 12 Labs Laboratory Tests Test 07/13/22 07:25 Range/Units White Blood Count 8.2 4.3-11.0 10^3/uL Red Blood Count 4.18 3.80-5.11 10^6/uL Hemoglobin 12.4 11.5-16.0 g/dL Hematocrit 37 35-52 % Mean Corpuscular Volume 89 80-99 fL Mean Corpuscular Hemoglobin 30 25-34 pg Mean Corpuscular Hemoglobin Concent 34 32-36 g/dL Red Cell Distribution Width 14.1 10.0-14.5 % Platelet Count 203 130-400 10^3/uL Mean Platelet Volume 10.2 9.0-12.2 fL Immature Granulocyte % (Auto) 4 % Neutrophils (%) (Auto) 69 42-75 % Lymphocytes (%) (Auto) 19 12-44 % Monocytes (%) (Auto) 7 0-12 % Eosinophils (%) (Auto) 1 0-10 % Basophils (%) (Auto) 1 0-10 % Neutrophils # (Auto) 5.6 1.8-7.8 10^3/uL Lymphocytes # (Auto) 1.6 1.0-4.0 10^3/uL Monocytes # (Auto) 0.6 0.0-1.0 10^3/uL Eosinophils # (Auto) 0.1 0.0-0.3 10^3/uL Basophils # (Auto) 0.0 0.0-0.1 10^3/uL Immature Granulocyte # (Auto) 0.3 H 0.0-0.1 10^3/uL OB - Assessment/Plan/Diagnosis Assessment Admission Dx Intrahepatic cholestasis of Admission Status: Inpatient Order (span 2 midnights) Reason for Inpatient Admission: Labor, delivery and course Plan Problems: (1) Intrahepatic cholestasis Assessment & Plan: Discussed suspected intrahepatic cholestasis and significant length of time required for bile acid results. Given she is past 37 weeks and has severe symptoms, and there is risk of stillbirth if ICH present and risks of induction at full term are minimal, though not absent given 37 weeks discussed risks and benefits of expectant management versus induction and she wanted to proceed with induction. Will use pitocin and AROM (done at time of exam with clear fluid return) (2) Third trimester (3) 37 weeks gestation of ZECHARIAH BRIGGS MD Jul 13, 2022 07:57
[2022-07-13] MEDS ORDERED: LACTATED RINGERS 1,000 ML IV ONE ×2 (09:05→22:00)
[2022-07-13] MEDS ORDERED: fentaNYL 2 mcg/ml BUPIVA 0.125 100 ML ONE (09:05)
[2022-07-13] MEDS ORDERED: diphenhydrAMINE 50 MG/ML INJ (BENADRYL) IV PRN (10:15)
[2022-07-13] MEDS ORDERED: ONDANSETRON 4 MG/2 ML (SDV) Z0FRAN IV PRN (10:15)
[2022-07-13] MEDS ORDERED: NALOXONE 0.4 MG/ML 1 ML (NARCAN) VIAL IV PRN ×2 (10:15)
[2022-07-13] MEDS ORDERED: LACTATED RINGERS 1,000 ML IV SCH (10:15)
[2022-07-13] MEDS ORDERED: fentaNYL 2 mcg/ml BUPIVA 0.125 100 ML EPI SCH (10:15)
[2022-07-13] MEDS ORDERED: METOCLOPRAMIDE INJ 10 MG/2 ML (REGLAN) IV PRN (10:15)
[2022-07-13] MEDS ORDERED: CATHETER FLUSH 10 ML SYR IV SCH (14:00)
--- NOTE | 2022-07-13 14:46 | OB Labor & Delivery Record ---
Vag Delivery Note Vag Delivery Note Date of Delivery: 07/13/22 Preoperative Diagnosis: Keisha Lino is a (41 /Para 3 / 2, Gestational Age (wks)37with 4 days Postoperative Diagnosis: Same Surgeon: ZECHARIAH BRIGGS Anesthesia: Epidural Delivery Type: Findings: Viable male , apgars [], weight [] Lacerations: none Intact placenta with 3 vessel cord. No nuchal cord, body cord. Brief shoulder dystocia less than one minute, resolved with McRobert's positioning. Estimated Blood Loss: 350 ml Complications: None Condition: Stable Description of Procedure: The patient is a 41 year old female who presented for induction of labor due to intrahepatic cholestasis of . She was admitted and informed consent was obtained. Her labor course was uncomplicated. She progressed to complete dilatation and began to push. She was then set up for delivery. The 's head was delivered atraumatically in the BARBARA position. The head delivered slowly, and there was a brief should dystocia relieved with McRobert's positioning followed by slow delivery of chest and then the remainder of the body easily. Upon delivery, the infant was vigorous and placed on maternal chest and the mouth and nares were bulb suc tioned. After a delay cord was doubly clamped and cut and the infant remained on maternal chest. An intact placenta with 3-vessel cord delivered via Mireya and there was found to be minimal bleeding.~ Vigorous fundal massage was performed and the fundus was found to be firm. IV oxytocin was given. Examination of the vagina and perineum revealed no lacerations requiring repair. Following the delivery, sponge, instrument and needle counts were correct. Mom and baby were both in stable condition in the labor suite. Vitals - Labs Vital Signs - I&O Vital Signs Date Time Temp Pulse Resp B/P (MAP) Pulse Ox O2 Delivery O2 Flow Rate FiO2 07/13/22 10:39 57 20 129/68 (88) Room Air 07/13/22 10:24 68 20 117/63 (81) Room Air 07/13/22 10:05 70 20 134/70 (91) 99 Room Air 07/13/22 10:02 76 20 116/59 (78) Room Air 07/13/22 10:00 71 20 129/61 (83) 100 Room Air 07/13/22 09:57 79 20 118/55 (76) Room Air 07/13/22 09:55 77 20 130/64 (86) 99 Room Air 07/13/22 09:52 68 20 133/66 (88) Room Air 07/13/22 09:51 76 20 133/61 (85) 100 Room Air 07/13/22 09:47 56 20 139/66 (90) 100 Room Air 07/13/22 09:46 56 20 147/67 (93) 100 Room Air 07/13/22 09:45 59 20 133/65 (87) 100 Room Air 07/13/22 09:44 57 20 145/81 (102) 100 Room Air 07/13/22 09:42 59 20 142/80 (100) 100 Room Air 07/13/22 09:32 54 20 159/70 (99) 99 Room Air 07/13/22 07:23 36.8 54 20 159/90 (113) 99 Room Air 07/13/22 07:23 36.8 54 20 99 Room Air Labs Laboratory Tests 07/13/22 07:25: White Blood Count 8.2, Red Blood Count 4.18, Hemoglobin 12.4, Hematocrit 37, Mean Corpuscular Volume 89, Mean Corpuscular Hemoglobin 30, Mean Corpuscular Hemoglobin Concent 34, Red Cell Distribution Width 14.1, Platelet Count 203, Mean Platelet Volume 10.2, Immature Granulocyte % (Auto) 4, Neutrophils (%) (Auto) 69, Lymphocytes (%) (Auto) 19, Monocytes (%) (Auto) 7, Eosinophils (%) (Auto) 1, Basophils (%) (Auto) 1, Neutrophils # (Auto) 5.6, Lymphocytes # (Auto) 1.6, Monocytes # (Auto) 0.6, Eosinophils # (Auto) 0.1, Basophils # (Auto) 0.0, Immature Granulocyte # (Auto) 0.3H, Syphilis Serology Non-Reactive ZECHARIAH BRIGGS MD Jul 13, 2022 14:46
[2022-07-13] MEDS ORDERED: WITCH HAZEL(TUCKS) 40 EA JAR TOP PRN (15:00)
[2022-07-13] MEDS ORDERED: BENZOCAINE/MENTHOL (DERMOPLAST) 56 ML CAN TP PRN (15:00)
[2022-07-13] MEDS: IBUPROFEN 600 MG (MOTRIN) TAB PO SCH ×2 (15:36→21:56)
[2022-07-13] MEDS ORDERED: METHYLERGONOVINE 0.2 MG/ML (METHERGINE) AMP IM ONE (17:30)
[2022-07-13] MEDS ORDERED: ACETAMINOPHEN 500 MG TAB (TYLENOL) ONE (20:09)
[2022-07-13] MEDS: DOCUSATE SODIUM 100 MG (COLACE) CAP PO SCH (20:12)
[2022-07-13] MEDS ORDERED: ACETAMINOPHEN 500 MG TAB (TYLENOL) PO PRN (20:15)
[2022-07-13] MEDS ORDERED: TRANEXAMIC ACID 100 MG/ML 10 ML INJECTION ONE (21:07)
[2022-07-13] MEDS ORDERED: TRANEXAMIC ACID 100 MG/ML 10 ML INJECTION IV ONE (21:15)
[2022-07-13] MEDS: CATHETER FLUSH 10 ML SYR IV SCH (22:00)
--- NOTE | 2022-07-13 22:09 | Progress Note ---
Subjective Subjective/Events-last exam Patient had 350mL EBL at delivery. Has passed several large clots with ongoing trickling of blood since delivery. Given dose of methergin. Patient denies symptoms at this time. Vaginal exam done with speculum, no evidence of laceration, small clot (half-dollar size) removed for the uterine os. Uterus firm from fundus to lower uterine segment. TXA given (just now completed). Hb done 11.3 (12.4 pre-delivery). EBL at this time 1040mL plus some additional blood in the toilet. BP 159/77 HR 53, O2 98% RR 20. Patient complains of cramping 5/10. Additional labs ordered. Continue close monitoring. Objective Exam Last Set of Vital Signs Vital Signs Date Time Temp Pulse Resp B/P (MAP) Pulse Ox O2 Delivery O2 Flow Rate FiO2 07/13/22 17:53 61 18 121/70 (87) Room Air 07/13/22 13:39 36.6 99 Capillary Refill : Less Than 3 Seconds Results/Procedures Lab Laboratory Tests 07/13/22 07:25: White Blood Count 8.2, Red Blood Count 4.18, Hemoglobin 12.4, Hematocrit 37, Stacia n Corpuscular Volume 89, Mean Corpuscular Hemoglobin 30, Mean Corpuscular Hemoglobin Concent 34, Red Cell Distribution Width 14.1, Platelet Count 203, Mean Platelet Volume 10.2, Immature Granulocyte % (Auto) 4, Neutrophils (%) (Auto) 69, Lymphocytes (%) (Auto) 19, Monocytes (%) (Auto) 7, Eosinophils (%) (Auto) 1, Basophils (%) (Auto) 1, Neutrophils # (Auto) 5.6, Lymphocytes # (Auto) 1.6, Monocytes # (Auto) 0.6, Eosinophils # (Auto) 0.1, Basophils # (Auto) 0.0, Immature Granulocyte # (Auto) 0.3H, Syphilis Serology Non-Reactive 07/13/22 20:48: Hemoglobin 11.3L LOVE RAYA DO Jul 13, 2022 22:09
[2022-07-13 22:21] LABS: BASOPHILS % (AUTO) 0 % (0-10); EOSINOPHILS # (AUTO) 0.1 10^3/uL (0.0-0.3); EOSINOPHILS % (AUTO) 1 % (0-10); HEMATOCRIT 29 % (35-52); HEMOGLOBIN 9.8 g/dL (11.5-16.0); LYMPHOCYTES # (AUTO) 1.4 10^3/uL (1.0-4.0); LYMPHOCYTES % (AUTO) 12 % (12-44); MEAN CORPUSCULAR HEMOGLOBIN 30 pg (25-34); MEAN CORPUSCULAR HGB CONC 34 g/dL (32-36); MEAN CORPUSCULAR VOLUME 89 fL (80-99); MEAN PLATELET VOLUME 10.5 fL (9.0-12.2); MONOCYTES # (AUTO) 0.9 10^3/uL (0.0-1.0); MONOCYTES % (AUTO) 8 % (0-12); NEUTROPHILS # (AUTO) 8.9 10^3/uL (1.8-7.8); NEUTROPHILS % (AUTO) 77 % (42-75); PLATELET COUNT 171 10^3/uL (130-400); WHITE BLOOD COUNT 11.6 10^3/uL (4.3-11.0)
[2022-07-13 22:31] LABS: INR 0.8 (0.8-1.4); PROTHROMBIN TIME PATIENT 11.3 SEC (12.2-14.7)
[2022-07-13] MEDS ORDERED: METHYLERGONOVINE 0.2 MG (MEHTERGINE) TAB PO SCH (23:30)
[2022-07-14 01:35] VITALS: BP 155/70
[2022-07-14] MEDS: IBUPROFEN 600 MG (MOTRIN) TAB PO SCH ×3 (03:32→16:42)
[2022-07-14 03:38] VITALS: BP 117/57
[2022-07-14 06:13] LABS: BASOPHILS % (AUTO) 0 % (0-10); EOSINOPHILS # (AUTO) 0.1 10^3/uL (0.0-0.3); EOSINOPHILS % (AUTO) 1 % (0-10)
[2022-07-14 06:14] VITALS: BP 109/53
[2022-07-14 06:14] LABS: HEMATOCRIT 27 % (35-52); HEMOGLOBIN 8.9 g/dL (11.5-16.0); LYMPHOCYTES # (AUTO) 1.3 10^3/uL (1.0-4.0); LYMPHOCYTES % (AUTO) 13 % (12-44); MEAN CORPUSCULAR HEMOGLOBIN 30 pg (25-34); MEAN CORPUSCULAR HGB CONC 33 g/dL (32-36); MEAN CORPUSCULAR VOLUME 91 fL (80-99); MEAN PLATELET VOLUME 10.9 fL (9.0-12.2); MONOCYTES # (AUTO) 0.8 10^3/uL (0.0-1.0); MONOCYTES % (AUTO) 8 % (0-12); NEUTROPHILS # (AUTO) 7.7 10^3/uL (1.8-7.8); NEUTROPHILS % (AUTO) 76 % (42-75); PLATELET COUNT 150 10^3/uL (130-400); WHITE BLOOD COUNT 10.2 10^3/uL (4.3-11.0)
[2022-07-14] MEDS ORDERED: PRENATAL VITAMIN 1 EA TAB PO SCH (07:00)
[2022-07-14 08:16] VITALS: BP 117/64
[2022-07-14] MEDS: HYDROcodone/APAP 5 MG/325 MG (LORTAB) TAB PO PRN ×2 (08:16→12:48)
[2022-07-14] MEDS: DOCUSATE SODIUM 100 MG (COLACE) CAP PO SCH (08:16)
[2022-07-14] MEDS: CATHETER FLUSH 10 ML SYR IV SCH ×2 (08:16→14:00)
--- NOTE | 2022-07-14 11:26 | Short Stay Summary ---
Discharge Summary Hospital Course Problems/Dx: (1) Intrahepatic cholestasis (2) Third trimester (3) 37 weeks gestation of Final Diagnosis: see Hospital Course Hospital Course Date of Admission: Jul 13, 2022 at 06:57 Admission Diagnosis : 1. at 37wk4d IOL for cholestasis of Family Physician/Provider: Barrett Date of Discharge: 07/14/22 Discharge Diagnosis: 1. at 37wk4d IOL for cholestasis of s/p on 07/13/22 2. hemorrhage 3. Acute blood loss anemia Hospital Course: IOL at 37wk due to cholestasis of . complicated by mild shoulder dystocia, otherwise uncomplicated. Patient had 350mL EBL at delivery. Pt passed several large clots with ongoing trickling of blood after delivery delivery. Given dose of methergin. Patient denied symptoms. Vaginal exam done with speculum, no evidence of laceration, small clot (half-dollar size) removed for the uterine os. Uterus firm from fundus to lower uterine segment. TXA given with signficant decreased in bleeding. Hb done 11.3 (12.4 pre-delivery), followed by 9.8, 9.2, 8.9. Other coag labs wnl. EBL 1075mL. VSS. Patient complains of cramping, otherwise denies symptoms. RX for iron. Labs and Pending Lab Test: Laboratory Tests 07/13/22 20:48: Hemoglobin 11.3L 07/13/22 21:57: Hemoglobin 9.8L, White Blood Count 11.6H, Red Blood Count 3.27L, Hematocrit 29L, Mean Corpuscular Volume 89, Mean Corpuscular Hemoglobin 30, Mean Corpuscular Hemoglobin Concent 34, Red Cell Distribution Width 13.8, Platelet Count 171, Mean Platelet Volume 10.5, Immature Granulocyte % (Auto) 2, Neutrophils (%) (Auto) 77H, Lymphocytes (%) (Auto) 12, Monocytes (%) (Auto) 8, Eosinophils (%) (Auto) 1, Basophils (%) (Auto) 0, Neutrophils # (Auto) 8.9H, Lymphocytes # (Auto) 1.4, Monocytes # (Auto) 0.9, Eosinophils # (Auto) 0.1, Basophils # (Auto) 0.0, Immature Granulocyte # (Auto) 0.2H, Prothrombin Time 11.3L, INR Comment 0.8, Fibrinogen 345 07/14/22 00:35: Hemoglobin 9.2L 07/14/22 06:05: Hemoglobin 8.9L, White Blood Count 10.2, Red Blood Count 3.00L, Hematocrit 27L, Mean Corpuscular Volume 91, Mean Corpuscular Hemoglobin 30, Mean Corpuscular Hemoglobin Concent 33, Red Cell Distribution Width 14.0, Platelet Count 150, Mean Platelet Volume 10.9, Immature Granulocyte % (Auto) 2, Neutrophils (%) (Auto) 76H, Lymphocytes (%) (Auto) 13, Monocytes (%) (Auto) 8, Eosinophils (%) (Auto) 1, Basophils (%) (Auto) 0, Neutrophils # (Auto) 7.7, Lymphocytes # (Auto) 1.3, Monocytes # (Auto) 0.8, Eosinophils # (Auto) 0.1, Basophils # (Auto) 0.0, Immature Granulocyte # (Auto) 0.2H, Percent Immature Platelet Fraction 5.5 Assessment/Pt Instructions Rx for ferrous sulfate 325mg twice daily. Follow up with Dr. Hyde if increase in bleeding, otherwise follow-up for visit in 6 weeks. Discharge Instructions Discharge Diet: No Restrictions Discharge Physical Examination General Appearance: Alert, Oriented X3, Cooperative Respiratory: Clear to Auscultation Abdominal: Normal Bowel Sounds Neuro: Normal Gait Allergies: Coded Allergies: No Known Drug Allergies (Unverified , 06/27/11) Copy Copies To 1: ZECHARIAH HYDE MD Discharge Summary Date of Admission Jul 13, 2022 at 06:57 Date of Discharge Discharge Diagnosis (1) Intrahepatic cholestasis Assessment & Plan: Discussed suspected intrahepatic cholestasis and significant length of time required for bile acid results. Given she is past 37 weeks and has severe symptoms, and there is risk of stillbirth if ICH present and risks of induction at full term are minimal, though not absent given 37 weeks discussed risks and benefits of expectant management versus induction and she wanted to proceed with induction. Will use pitocin and AROM (done at time of exam with clear fluid return) (2) Third trimester (3) 37 weeks gestation of LOVE RAYA DO Jul 14, 2022 11:24
[2022-07-14] MEDS ORDERED: FERR325T24 PO (11:28)
[2022-07-14] MEDS ORDERED: IBUP-844 PO (11:28)
[2022-07-14] MEDS ORDERED: FERROUS SULF 325 MG (IRON) TAB PO SCH (11:30)
[2022-07-14 12:10] VITALS: BP 124/70
[2022-07-14 17:26] VITALS: BP 124/70
== END 2022-07-14 17:26 | disposition home or self-care (01) | DRG 805 ==
LOC: LDRP 06:57
PROVIDERS: ADMIT Family Medicine; ATTEND Family Medicine
PROC: 10E0XZZ Delivery of Products of Conception, External Approach (ICD-10-PCS; principal; 2022-07-13)
PROC: 10907ZC Drainage of Amniotic Fluid, Therapeutic from Products of Conception, Via Natural or Artificial Opening (ICD-10-PCS; 2022-07-13)
PROC: 3E033VJ Introduction of Other Hormone into Peripheral Vein, Percutaneous Approach (ICD-10-PCS; 2022-07-13)
DX: O26.62 Liver and biliary tract disorders in childbirth (principal); K83.1 Obstruction of bile duct; Z37.0 Single live birth; D62 Acute posthemorrhagic anemia; O72.1 Other immediate postpartum hemorrhage; Z3A.37 37 weeks gestation of pregnancy; O90.81 Anemia of the puerperium
CPT/HCPCS: 36415; 85018; 85025; 85384; 85610; 86780; 86850; 86900; 86901